=== PATIENT | female | born 1950 | race Caucasian/White ===

== ENCOUNTER 2023-04-17 08:20 | Day surgery (SDC) | payer MEDICARE ==
[2023-04-17] VITALS (13 sets, daily range): BP systolic 101–155; BP diastolic 56–79
[~2023-04-17] VITALS: Ht 157.5 cm; Wt 86.5 kg
[~2023-04-17 08:20] MED LIST: Acetaminophen650 M1 PO; Calcium Carbon500 MG PO; Flonase 0.05% N16 GM; LOSA50 PO; MULVITA PO; PANT40 PO; ROSU5 PO; SERT100 PO; VITAMIN D310 MC4 PO; VITAMIN E PO; [UNRECOGNIZED DRUG - OTHER] VAG
--- NOTE | 2023-04-17 10:01 | NUR ---
PT AMB TO BATHOOM PRIOR TO GOING BACK TO SURGERY. GLASSES PLACED IN PLASTIC BACK AND PUT IN PACU.
--- NOTE | 2023-04-17 10:01 | NUR ---
History, Chart, Medications and Allergies reviewed before start of procedure. Lungs clear T/O to Auscultation. Patient confirms NPO status and agrees with scheduled surgery. Pre-Op teaching done. Pt verbalizes understanding. Patient reports completing Chlorhexadine shower X2 prior to admission to hospital.
--- NOTE | 2023-04-17 12:36 | NUR ---
FIRE SAFETY EDUCATION EDUCATED PT AND SPOUSE ON FIRE SAFETY. BOTH VERBALIZED UNDERSTANDING.
--- NOTE | 2023-04-17 17:56 | NUR ---
SUMMARY NO ACUTE CHANGES SINCE ARRIVING TO [facility] FROM PACU. PT WORKED WITH THERAPY, HAS BEEN SITTING UP IN RECLINER AND HAS BEEN UP TO RESTROOM TO VOID. POLAR PACK IN PLACE. ABX INFUSING PER ORDERS. PT MEDICATED PER ORDERS FOR PAIN. CALL LIGHT IN REACH.
[2023-04-18 04:26] VITALS: BP 144/75
[2023-04-18 06:11] LABS: BASOPHILS ABSOLUTE AUTO 0.02 K/mm3 (0.00-0.23); BASOPHILS PERCENT AUTO 0 % (0-2); EOSINOPHILS ABSOLUTE AUTO 0.01 K/mm3 (0.00-0.68); EOSINOPHILS PERCENT AUTO 0 % (0-6); Hematocrit 38.1 % (33.0-51.0); Hemoglobin 12.6 g/dL (11.5-16.0); IMMATURE GRAN ABSOLUTE AUTO 0.04 K/mm3 (0.00-0.10); IMMATURE GRAN PERCENT AUTO 0 % (0-1); LYMPHOCYTES PERCENT AUTO 14 % (21-46); MONOCYTES ABSOLUTE AUTO 0.68 K/mm3 (0.16-1.47); MONOCYTES PERCENT AUTO 6 % (4-13); Mean Corpuscular HGB 29.9 pg (26.0-34.0); Mean Corpuscular HGB Conc 33.1 g/dL (31.5-36.5); Mean Corpuscular Volume 90 fL (80-100); Mean Platelet Volume 10.7 fL (9.1-12.4); NEUTROPHILS ABSOLUTE AUTO 8.49 K/mm3 (1.96-9.15); NEUTROPHILS PERCENT AUTO 79 % (41-73); Platelet Count 232 K/mm3 (150-400); RDW Coefficient Variation 13.1 % (11.7-14.2); RDW Standard Deviation 43.4 fL (35.1-46.3); Red Blood Cell Count 4.22 M/mm3 (3.80-5.20); White Blood Cell Count 10.74 K/mm3 (4.00-11.30)
--- NOTE | 2023-04-18 06:34 | NUR ---
SHIFT SUMMARY POD#1 R.TKA A&O X4, ON RA @ BASELINE, 2L O2 VIA NC WHILE SLEEPING PER PT REQUEST IN PLACE OF HER HOME CPAP, VSS, 1 ASSIST TO BATHROOM USING FWW/GAIT BELT, PT HAS WALKED IN HALLS WITH SKILLS AUDITOR DURING THE NIGHT, VOIDING WNL, TOLERATING PO INTAKE, PAIN MANAGED W/POLAR PACK/MEDS PER EMAR, WCTM & REPORT TO DAY RN, CALL LIGHT IN REACH
[2023-04-18 06:36] LABS: Magnesium, Blood 2.1 mg/dL (1.6-2.4)
[2023-04-18 06:54] LABS: Calcium, Blood 8.7 mg/dL (8.5-10.1); Creatinine, Blood 0.47 mg/dL (0.40-1.00)
[2023-04-18 07:14] VITALS: BP 124/68
[2023-04-18] MEDS ORDERED: ACET500 PO (11:15)
[2023-04-18] MEDS ORDERED: ASPI81CH PO (11:16)
[2023-04-18] MEDS ORDERED: OXYC5 PO (11:17)
--- NOTE | 2023-04-18 11:38 | NUR ---
DISCHARGING REVIEWED DC PAPERWORK WITH PT; VERBALIZED UNDERSTANDING. PT LEAVING UNIT IN WC W/POSSESSIONS AND DC PAPERWORK IN HAND, ACCOMPANIED BY SPOUSE AND LOGAN, RN TO RIDE OUTSIDE.
== END 2023-04-18 12:03 | disposition home or self-care (01) ==
LOC: ORSCMMR 08:20 → ORD 10:30 → SURS 12:09 → ORSCMMR 04-18 12:03
PROVIDERS: Orthopaedic Surgery
PROC: 8E0Y0CZ Robotic Assisted Procedure of Lower Extremity, Open Approach (ICD-10-PCS; principal; 2023-04-17 10:30)
PROC: 0SRC0JA Replacement of Right Knee Joint with Synthetic Substitute, Uncemented, Open Approach (ICD-10-PCS; principal; 2023-04-17 10:30)
DX: M17.11 Unilateral primary osteoarthritis, right knee (principal); Z96.652 Presence of left artificial knee joint; E78.5 Hyperlipidemia, unspecified; I10 Essential (primary) hypertension; K21.9 Gastro-esophageal reflux disease without esophagitis; F41.9 Anxiety disorder, unspecified; Z79.899 Other long term (current) drug therapy; E66.9 Obesity, unspecified; Z68.34 Body mass index [BMI] 34.0-34.9, adult
CPT/HCPCS: 27447; 20985; S2900; 36415; 73560-RT; 80048; 83735; 85025; 93005; 93010; 97110; 97116; 97162; A9270; C1776; J0171; J0690; J0735; J1100; J1885; J2250; J2371; J2405; J2704; J2795; J3010; J7120

== ENCOUNTER 2024-03-22 13:39 | Day surgery (SDC) | payer MEDICARE ==
[~2024-03-22] VITALS: Ht 160 cm; Wt 97.9 kg
[~2024-03-22 13:39] MED LIST changes: +ACET500 PO; +ASPI81CH PO; +Atropine Sulfate 0.1 MG/ML 10ML SYR ONE; +Glycopyrrolate 0.2 MG/ML 1MLVIAL ONE; +Lactated Ringer's 1,000 ML IV ONE; +Lidocaine 2% 5 ML SDV ONE; +Lidocaine HCl/Pf 1% 5 ML VIAL ONE; +Methylene Blue 1% 100 MG/10 ML VIAL ONE; +OXYC5 PO; +Ondansetron HCl 2 MG / ML 2ML Vial ONE; +ePHEDrine Sulfate 50 MG/ML 1ML Injection ONE
[2024-03-22] MEDS ORDERED: Lactated Ringer's 1,000 ML IV ONE (13:48)
[2024-03-22] MEDS ORDERED: MELO7.5 (13:52)
[2024-03-22] MEDS ORDERED: [UNRECOGNIZED DRUG - OTHER] (13:52)
[2024-03-22] MEDS ORDERED: propofoL 50 ML IV ONE (14:30)
[2024-03-22 15:41] VITALS: BP 133/71
== END 2024-03-22 15:41 | disposition home or self-care (01) ==
LOC: ORSCSDS 13:39
PROVIDERS: Internal Medicine Gastroenterology
PROC: 0DJ08ZZ Inspection of Upper Intestinal Tract, Via Natural or Artificial Opening Endoscopic (ICD-10-PCS; principal; 2024-03-22 14:45)
PROC: 0DBM8ZX Excision of Descending Colon, Via Natural or Artificial Opening Endoscopic, Diagnostic (ICD-10-PCS; principal; 2024-03-22 14:45)
DX: R13.10 Dysphagia, unspecified (principal); K21.9 Gastro-esophageal reflux disease without esophagitis; K63.5 Polyp of colon; Z86.010 Personal history of colon polyps; I10 Essential (primary) hypertension; E78.5 Hyperlipidemia, unspecified; F41.9 Anxiety disorder, unspecified; G47.33 Obstructive sleep apnea (adult) (pediatric); Z79.899 Other long term (current) drug therapy; Z87.891 Personal history of nicotine dependence
CPT/HCPCS: 88305; J0461; J2001; J2405; J2704; J7120; Q9968

== ENCOUNTER → 2025-04-16 | Outpatient (CLI) | payer MEDICARE ==
[~2025-04-16] MED LIST changes: -Atropine Sulfate 0.1 MG/ML 10ML SYR ONE; -Glycopyrrolate 0.2 MG/ML 1MLVIAL ONE; -Lactated Ringer's 1,000 ML IV ONE; -Lidocaine 2% 5 ML SDV ONE; -Lidocaine HCl/Pf 1% 5 ML VIAL ONE; +MELO7.5; -Methylene Blue 1% 100 MG/10 ML VIAL ONE; -Ondansetron HCl 2 MG / ML 2ML Vial ONE; +[UNRECOGNIZED DRUG - OTHER]; -ePHEDrine Sulfate 50 MG/ML 1ML Injection ONE
[2025-04-16 16:12] LABS: Source, Urine Clean Catch
[2025-04-16 19:07] LABS: Bilirubin, Urine Neg (Neg); Color, Urine Yellow (P-Yellow); Glucose Qualitative, Urine Neg (Neg); Ketones, Urine Neg (Neg); Leukocyte Esterase, Urine 3+ (Neg); Protein, Urine 1+ (Neg); Specific Gravity, Urine 1.015 (1.003-1.022); Urobilinogen, Urine NORM (Normal)
== END | disposition home or self-care (01) ==
LOC: LAB 16:08 → LAB SHORT 16:08
PROVIDERS: Obstetrics & Gynecology
DX: R82.90 Unspecified abnormal findings in urine (principal)
CPT/HCPCS: 81001; 87086; 87147

== ENCOUNTER → 2025-05-02 | Outpatient (CLI) | payer MEDICARE ==
[2025-05-02 18:08] LABS: Source, Urine Voided
[2025-05-02 19:34] LABS: Bilirubin, Urine Neg (Neg); Color, Urine Yellow (P-Yellow); Glucose Qualitative, Urine Neg (Neg); Ketones, Urine 1+ (Neg); Leukocyte Esterase, Urine Neg (Neg); Protein, Urine 1+ (Neg); Specific Gravity, Urine 1.020 (1.003-1.022); Urobilinogen, Urine NORM (Normal)
[2025-05-02 19:59] LABS: White Blood Cells, Urine 0-2 /hpf (0-5)
[2025-05-03 07:01] LABS: Bacterial Vaginosis PCR Negative (NEGATIVE); Candida Group, PCR NOT DETECTED (NOT DETECT); Candida glabrata-krusei, PCR NOT DETECTED (NOT DETECT)
== END ==
LOC: LAB SHORT 18:07 → LAB 18:07
PROVIDERS: Obstetrics & Gynecology
DX: N76.0 Acute vaginitis (principal); R30.0 Dysuria
CPT/HCPCS: 81001; 81515; 87086

== ENCOUNTER 2025-06-11 08:56 | Day surgery (SDC) | payer MEDICARE ==
[~2025-06-11] VITALS: Ht 157.5 cm; Wt 84.7 kg
[~2025-06-11 08:56] MED LIST changes: +Balanced Salt Epinephrine Irrigation Solution 500 mL IR SCH; +Moxifloxacin HCL 0.5 MG/0.1 ML 0.4MLSYR RIGHTEYE SCH; +Ondansetron 4 MG SoluTab MM PRN; +PHENYLEPHRINE\\TROPICAMIDE\\TETRACAINE OPHTHALMIC DILATING SOLN RIGHTEYE PRN; +Povidone-Iodine 450 DROP/30 ML Solution ONE; +Povidone-Iodine 450 DROP/30 ML Solution RIGHTEYE SCH; +Tetracaine HCl/Pf 0.5% Opth Soln 4 ml ONE; +Triamcinolone Inj Susp 40 MG / ML 1ML Vial INJ SCH; +Triamcinolone Inj Susp 40 MG / ML 1ML Vial ONE
--- NOTE | 2025-06-11 09:30 | NUR ---
06/11/25 0930 Deyanira Gardiner PT STATES ANXIETY PRIOR TO PROCEDURE WAS 0/. VALIUM 10MG GIVEN AT 09. PULSE OXIMETRY IN PLACE SHOWING SPO2 OF 96% ON RA. TETRACAINE IN AT 09 PLEDGETT IN AT 921 PT TOLERATED WELL SIDE RAILS UP. CALL LIGHT IN REACH. AT BEDSIDE.
--- NOTE | 2025-06-11 10:11 | NUR ---
06/11/25 1011 VELMA BROWN PT VSS T/O PROCEDURE 164/83 HR 67 99% O2 ON BLOWBY
--- NOTE | 2025-06-11 10:29 | NUR ---
06/11/[address] AT BEDSIDE. BROUGHT TO BEDSIDE
[2025-06-11 10:41] VITALS: BP 158/73
== END 2025-06-11 10:41 | disposition home or self-care (01) ==
LOC: ORSCSDS 08:56
PROVIDERS: Ophthalmology
PROC: 08RJ3JZ Replacement of Right Lens with Synthetic Substitute, Percutaneous Approach (ICD-10-PCS; principal; 2025-06-11 10:30)
DX: H25.813 Combined forms of age-related cataract, bilateral (principal); H52.4 Presbyopia; I10 Essential (primary) hypertension; E78.5 Hyperlipidemia, unspecified; G47.33 Obstructive sleep apnea (adult) (pediatric); F41.9 Anxiety disorder, unspecified; K21.9 Gastro-esophageal reflux disease without esophagitis; Z79.85 Long-term (current) use of injectable non-insulin antidiabetic drugs; Z79.899 Other long term (current) drug therapy; Z87.891 Personal history of nicotine dependence
CPT/HCPCS: A9270; J3301; V2632

== ENCOUNTER 2025-06-25 11:08 | Day surgery (SDC) | payer MEDICARE ==
[~2025-06-25] VITALS: Ht 157.5 cm; Wt 84.1 kg
[~2025-06-25 11:08] MED LIST changes: +Moxifloxacin HCL 0.5 MG/0.1 ML 0.4MLSYR LEFTEYE SCH; -Moxifloxacin HCL 0.5 MG/0.1 ML 0.4MLSYR RIGHTEYE SCH; +PHENYLEPHRINE\\TROPICAMIDE\\TETRACAINE OPHTHALMIC DILATING SOLN LEFTEYE PRN; -PHENYLEPHRINE\\TROPICAMIDE\\TETRACAINE OPHTHALMIC DILATING SOLN RIGHTEYE PRN; +Povidone-Iodine 450 DROP/30 ML Solution LEFTEYE SCH; -Povidone-Iodine 450 DROP/30 ML Solution RIGHTEYE SCH
--- NOTE | 2025-06-25 11:48 | NUR ---
06/25/25 Darinel8 Carol Wright UPON ARRIVAL PT RATES ANXIETY 11/11. PT ON PULSE OX, SATS ARE 97%. AT BEDSIDE. CALL LIGHT IN REACH.
--- NOTE | 2025-06-25 12:15 | NUR ---
06/25/25 1215 Alejandrina Smith HR:65 RR:14 BP:143/75 SPO2:99% ON 10L BLOW BY O2
[2025-06-25 12:37] VITALS: BP 146/74
== END 2025-06-25 12:48 | disposition home or self-care (01) ==
LOC: ORSCSDS 11:08
PROVIDERS: Ophthalmology
PROC: 08RK3JZ Replacement of Left Lens with Synthetic Substitute, Percutaneous Approach (ICD-10-PCS; principal; 2025-06-25 12:30)
DX: H25.812 Combined forms of age-related cataract, left eye (principal); Z96.1 Presence of intraocular lens; H52.4 Presbyopia; Z87.891 Personal history of nicotine dependence; Z96.653 Presence of artificial knee joint, bilateral; I10 Essential (primary) hypertension; E78.5 Hyperlipidemia, unspecified; G47.33 Obstructive sleep apnea (adult) (pediatric); K21.9 Gastro-esophageal reflux disease without esophagitis; F41.9 Anxiety disorder, unspecified; Z79.899 Other long term (current) drug therapy
CPT/HCPCS: A9270; J3301; V2632